=== PATIENT | male | born 1955 | race Caucasian/White ===

== ENCOUNTER 2016-06-11 22:38 | Emergency (ER) | payer OTHER ==
[~2016-06-11] VITALS: Ht 177.8 cm; Wt 115.7 kg
[2016-06-11 22:50] VITALS: BP 194/97
--- NOTE | 2016-06-11 23:02 | ED NECK/BACK PAIN COMPLAINT ---
History of Present Illness General Chief Complaint: Neck/Upper Back Pain/Injury Stated Complaint: UPPER BACK PAIN Source: patient Exam Limitations: no limitations Vital Signs & Intake/Output Vital Signs & Intake/Output Vital Signs Date Time Temp Pulse Resp B/P Pulse O2 O2 Flow FiO2 Ox Delivery Rate 06/11 2250 194/97 06/11 2246 97.2 58 18 188/121 98 Room Air ED Intake and Output 06/12 0000 06/11 1200 Intake Total 0 Output Total Balance 0 Intake, Oral 0 Patient 255 lb Weight Allergies Coded Allergies: No Known Allergies (06/11/16) Triage Note: RECEIVED 61 YO MALE C/O PAIN TO RIGHT SHOULDER BLADE AREA, STARTED LAST THURSDAY, SEEM PMD THURSDAY, PRESCRIBED FLEXERIL WITH NO IMPROVEMENT. Triage Nurses Notes Reviewed? yes Onset: Gradual Duration: week(s):, waxing and waning Timing: recent history Quality/Severity: moderate Location: left scapular region Radiation: none Context: patient is uncertain of etiology of his pain Method of Injury: unknown Loss of Consciousness: no loss of consciousness Modifying Factors: movement Associated Symptoms: muscle spasm HPI: 61-year-old gentleman in prior good health presents with several weeks of right upper back pain. He notes that it hurts when he moves his arm. It is not better after NSAIDs, narcotics, muscle relaxers. He is able to move his arm without problem. He notes no trauma or paresthesias. His girlfriend states that there is one focal points of pain, "that really hurts... so much that he can't sleep." He has also tried a chiropractor without improvement. Past History Travel History Traveled to [place] past 21 day No Medical History Any Pertinent Medical History? see below for history Neurological: NONE EENT: NONE Cardiovascular: CAD, hypertension, hyperlipidemia Respiratory: NONE Gastrointestinal: NONE Hepatic: NONE Renal: NONE Musculoskeletal: NONE Psychiatric: NONE Endocrine: NONE Blood Disorders: NONE Cancer(s): NONE Surgical History Surgical History: none Psychosocial History What is your primary language Citizen [place] Tobacco Use: Quit >30 days ago Family History Hx Contributory? No Review of Systems Review of Systems Constitutional: Reports: no symptoms. Eyes: Reports: no symptoms. Ears, Nose, Throat, Mouth: Reports: no symptoms. Respiratory: Reports: no symptoms. Cardiovascular: Reports: no symptoms. Gastrointestinal/Abdominal: Reports: no symptoms. Musculoskeletal: Reports: no symptoms. Skin: Reports: no symptoms. Neurological/Psychological: Reports: no symptoms. All Other Systems: Reviewed and Negative Physical Exam Physical Exam General Appearance: well developed/nourished, mild distress Head: atraumatic Eyes: Bilateral: normal appearance. Ears, Nose, Throat, Mouth: hearing grossly normal Neck: normal inspection, supple, full range of motion, normal alignment, abnormal alignment, no midline tenderness Respiratory: normal breath sounds Cardiovascular: regular rate/rhythm Gastrointestinal: soft, non-tender Back: normal inspection, muscle spasm in the inferior medial area of the right scapula. There is a focal point of muscle spasm and tenderness. Extremities: normal range of motion Neurologic/Psych: awake, alert, oriented x 3, normal mood/affect Skin: intact, normal color, warm/dry Comments: Strength light touch and deep tendon reflexes are symmetrical and equal in upper and lower extremities. Progress Differential Diagnosis: muscle spasm versus other Plan of Care: Orders Procedure Date/time Status EKG 06/11 2248 Active Departure Departure Disposition: HOME OR SELF CARE Condition: Stable Clinical Impression Primary Impression: Muscle spasm Referrals: LEEROY BERMUDEZ,MAICOL Otoole (PCP/Family) Departure Forms: Customer Survey General Discharge Information Procedures Comments Comments: Procedure: Trigger point injection at scapular pain site. With patient consent, 8 mL of bupivacaine 0.25% was injected into the right scapular region at the exact site of his pain. He notes immediate relief.
== END 2016-06-12 00:21 ==
LOC: ERH 22:38
DX: M62.830 Muscle spasm of back (principal)
CPT/HCPCS: 93005; 93010